=== PATIENT | female | born 1965 | race African-American/Black ===

== ENCOUNTER → 2019-08-21 | Outpatient (CLI) | payer OTHER | LOC: M.LAB 08:52 | PROVIDERS: ATTEND Orthopaedic Surgery | DX: Z01.812 Encounter for preprocedural laboratory examination (principal) ==

== ENCOUNTER → 2019-09-11 | Outpatient (CLI) | payer OTHER | LOC: M.LAB 09:02 | PROVIDERS: ATTEND Orthopaedic Surgery | DX: Z01.812 Encounter for preprocedural laboratory examination (principal); Z11.59 Encounter for screening for other viral diseases ==

== ENCOUNTER 2019-11-11 10:18 | Emergency (ER) | payer OTHER ==
[~2019-11-11] VITALS: Ht 157.5 cm; Wt 77.1 kg
[2019-11-11] MEDS ORDERED: PLAQUENIL200 MG PO (10:43)
[2019-11-11] MEDS ORDERED: JARDIANCE25 MG PO (10:44)
[2019-11-11] MEDS ORDERED: LIPITOR10 MG PO (10:44)
[2019-11-11] MEDS ORDERED: AMARYL4 MG PO (10:44)
[2019-11-11] MEDS ORDERED: LANTUS SUBQ (10:44)
[2019-11-11] MEDS ORDERED: HYDROCODON-ACE1 EAC5 PO (10:44)
[2019-11-11] MEDS ORDERED: BYDUREON P2 MG/0.65 (10:45)
[2019-11-11 11:54] VITALS: BP 169/72
== END 2019-11-11 11:54 | disposition home or self-care (01) ==
LOC: M.ERS 10:18
DX: B34.9 Viral infection, unspecified (principal); Z20.828 Contact with and (suspected) exposure to other viral communicable diseases; Z79.899 Other long term (current) drug therapy

== ENCOUNTER 2021-02-25 20:12 | Emergency (ER) | payer OTHER ==
[~2021-02-25] VITALS: Ht 157.5 cm; Wt 73.9 kg
[~2021-02-25 20:12] MED LIST: AMARYL4 MG PO; BYDUREON P2 MG/0.65; HYDROCODON-ACE1 EAC5 PO; JARDIANCE25 MG PO; LANTUS SUBQ; LIPITOR10 MG PO; PLAQUENIL200 MG PO
[2021-02-25] MEDS ORDERED: CEPHALEXIN500 MG PO (21:25)
[2021-02-25 22:00] VITALS: BP 112/65
== END 2021-02-25 22:01 | disposition home or self-care (01) ==
LOC: M.ERS 20:12
DX: S62.644A Nondisplaced fracture of proximal phalanx of right ring finger, initial encounter for closed fracture (principal); E11.9 Type 2 diabetes mellitus without complications; M19.90 Unspecified osteoarthritis, unspecified site; Z79.899 Other long term (current) drug therapy; Y08.89XA Assault by other specified means, initial encounter; Y93.89 Activity, other specified; Y92.89 Other specified places as the place of occurrence of the external cause; Y99.8 Other external cause status